=== PATIENT | female | born 1995 | race Caucasian/White ===

== ENCOUNTER → 2017-10-30 | Outpatient (CLI) | payer MEDICARE, MEDICAID ==
[~2017-10-30] MED LIST: "\\\"ANTIBIOTIC\\\""; ABILIFY 2 MG2 M1 PO; ALLEGRA180 MG; BENTYL10 MG PO; BIRTH CONTROL; BUTALB-APAP-CA1 EACH PO; CAMBIA50 MG PO; CIPROFLOXACIN500 M1 PO; CITRATE OF MAG296 ML PO; CONCERTA; CONCERTA54 MG PO; CORTAID28 GM TP; FLEXERIL PO; FLOMAX0.4 MG PO; IMITREX 25 MG T25 M1 PO; MACROBID 100 M100 M1 PO; MEDROLDOSEPACK PO; NAPROSYN375 MG PO; NAPROSYN500 MG PO; NORTRIPTYLINE H10 M1 PO; PERCOCET 5-3251 EACH PO; PRISTIQ50 M1 PO; PROPRANOLOL 8080 MG PO; SINGULAIR; SINGULAIR 10 MG10 M1; ULTRAM 50MG TAB50 MG PO; VICODIN; ZOFRAN4 MG PO; ZPAK PO
--- NOTE | 2017-10-31 08:24 | PAINCON ---
[address] [address] PAIN MANAGEMENT CONSULTATION Name: CRYSTAL LIU Room: [facility] Mani#: [id number] Admission: 10/30/17 Attend Phys: Thad Anaya Discharge: Date of : 89 Report #: [id number] THIS REPORT FOR: //name// CC: Jeffrey Quiles DATE OF SERVICE: 10/30/2017 HISTORY OF PRESENT ILLNESS: The patient is a pleasant 22-year-old female seen in consultation at the request of Dr. Russ for assistance with chronic headaches. The patient states she has had headaches for "many years." For the past 2 years without antecedent trauma and overuse, symptoms have been getting worse. She has been having greater than 15 headaches a month. Aches are primarily frontal with radiation to the retroorbital, bitemporal to the base of the skull. She has some subjective nausea and vomiting. Has subjective blurry vision, but no specific visual or aural prodrome type symptoms. She has tried conservative measures including ibuprofen, Aleve, Tylenol for headache treatment. Recently prescribed muscle relaxant, tizanidine as noted in the chart. Presently, she is using cyclobenzaprine. She states it makes her significantly sedated. She can only use it occasionally at bedtime. She describes pain that is fairly continuous, aching, sharp and stabbing. Rates her headaches anywhere from 8-9 on a visual analog scale. REVIEW OF SYSTEMS: Complete review of systems attached to chart and was gone over with the patient. She is single. She is in college. She is seen in the company of her grandmother who is supportive. 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 She lives at home and helps care for her 14-year-old special needs sister. She does not use alcohol or tobacco products. History of some asthma for which she uses Proventil p.r.n. She has a chronic anxiety and has been on Pristiq for some time. ADHD for which she takes Concerta. Remaining review of systems is noncontributory. Pain impact score is 34/70. PHYSICAL EXAMINATION: GENERAL: This is a 5 feet 4 inches, 163 pounds female. VITAL SIGNS: Blood pressure 126/86, pulse is 92, respirations are 16. NEUROLOGIC: Cranial nerves 2-12 are grossly intact. She is alert and oriented to person, place and time, judged to be a reasonable historian. HEENT: Some tenderness of the frontal sinuses, though not significant. Pupils are equal and reactive to light and accommodation. Extraocular muscles are intact. There is no nystagmus. Lateral gaze deviation. NECK: There is no cervical adenopathy appreciable. Cervical range of motion is good in flexion and extension. She is tender over the cervical facets, though [facility] [address] [place] [address] PAIN MANAGEMENT CONSULTATION Name: CRYSTAL LIU Room: [facility]#: [id number] Admission: 10/30/17 Attend Phys: Thad Anaya Discharge: Date of : [birth year] Report #: [id number] no discrete trigger points are noted. Thyroid is unremarkable. EXTREMITIES: Upper extremity strength is preserved. Deep tendon reflexes are symmetric. CARDIOVASCULAR: There are no carotid bruits auscultated. Heart is regular rate and rhythm without murmur. LUNGS: Clear to auscultation. ABDOMEN: Benign. MUSCULOSKELETAL: Gait is tandem. Skin wesley intact. IMAGING: The patient tells me she has had a cerebral MRI, I can see from Dr. Russ's office note dated 09/19/2017. That MRI of the brain and cervical spine was ordered. Unfortunately, I do not have those results. I can look up and note that at [facility], sinus x-rays on 07/27/2016 showed no consolidation of the frontal or maxillary sinuses. ASSESSMENT: Chronic daily headaches greater than 15 per month for greater than 2 years. The patient has been on abortive type [id number] agents and has not had any significant prophylactic agents tried. RECOMMENDATION: We will start the patient on nortriptyline 10 mg at bedtime for 30 days. We will try Imitrex 25 mg, dispensed 12 tablets, 1 tablet onset of acute headache, may repeat in 2 hours, max 2 headaches in 24 hours. Follow up in 30 days for reevaluation. If she is not doing better with the nortriptyline, we will try rotating to a beta-gopal, likely propranolol 80 mg b.i.d. for 30 days. If she fails prophylactic and abortive agents, she would likely be an excellent candidate for Botox injections. I will endeavor to obtain copies of the cervical and cranial MRI before next visit. Thanks for allowing me to participate in the patient's care. I will keep you abreast of her progress. <ELECTRONICALLY SIGNED> By: Camilo Quiles DO 10/31/17 0824 1426 [id number] Quiles DO /nt
== END ==
LOC: M.PC 01:27
DX: R51 Headache (principal)

== ENCOUNTER → 2017-12-11 | Outpatient (CLI) | payer MEDICARE, MEDICAID ==
--- NOTE | 2017-12-18 07:59 | PAINCON ---
[facility] [address] [place] [address] PAIN MANAGEMENT CONSULTATION Name: CRYSTAL LIU Room: [facility]#: [id number] Admission: 12/11/17 Attend Phys: Thad Anaya Discharge: Date of : [birth year] Report #: [id number] THIS REPORT FOR: //name// CC: Jeffrey Quiles HISTORY OF PRESENT ILLNESS: The patient is a very pleasant 22-year-old female seen in consultation on 10/30/2017 for chronic headaches. The patient was started on nortriptyline 10 mg at bedtime. We tried Imitrex for a headache aborting capability. He returns to pain clinic today noting that the headaches seem to be less frequent and intense though the Imitrex did not afford much relief. She notes her pain is primarily frontal. She rates this 6-7 on VAS. PHYSICAL EXAMINATION: VITAL SIGNS: Shows 5 feet 5 inches, 186 pound female and BMI is 31 kilograms per meter squared. Blood pressure is 115/74, pulse 91 and respirations 16. NEUROLOGICAL: Cranial nerves 2 through 12 are grossly intact. HEENT AND NECK: Pupils equal, react to light and accommodation. Extraocular muscles are intact. Gaze, there is no nystagmus. Cervical range of motion is adequate. There is no frontal sinus tenderness and no maxillary sinus tenderness. No cervical adenopathy. MUSCULOSKELETAL: Upper extremity strength is preserved. ASSESSMENT: Chronic headaches, requiring complex medication management. RECOMMENDATION: 1. The patient is doing well with nortriptyline at low dose 10 mg, will increase to 20 mg at bedtime. If this affords any untoward sedation and/or xerostomia, we will drop back to 10 mg. 2. We will try Fioricet for breakthrough headache, may take onset of headache, repeat in 2 hours max of 2 tablets in 24 hours. We will have the patient follow up in 2 months to evaluate efficacy of medication. Again, consideration for propranolol and/or Botox injections if headaches continue greater than 15/30 days. Discharged in stable condition. <ELECTRONICALLY SIGNED> By: Camilo Quiles DO 12/18/17 0759 1415 [id number] Quiles DO /nt
== END ==
LOC: M.PC 11-27 01:45
DX: R51 Headache (principal); Z79.899 Other long term (current) drug therapy

== ENCOUNTER → 2018-02-12 | Outpatient (CLI) | payer MEDICARE, MEDICAID ==
--- NOTE | 2018-02-17 06:53 | PAINCON ---
[address] [address] PAIN MANAGEMENT CONSULTATION Name: CRYSTAL LIU Room: [facility]#: [id number] Admission: 02/12/18 Attend Phys: Thad Anaya Discharge: Date of : 89 Report #: [id number] THIS REPORT FOR: //name// CC: Jeffrey Quiles DATE OF SERVICE: 02/12/2018 HISTORY OF PRESENT ILLNESS: The patient is a pleasant 22-year-old female being treated for chronic migraine headaches. The patient was initially seen in consultation on 10/30/2017. We have trialed Imitrex, which the patient failed. She is using nortriptyline, increased from 10 to 20 mg at bedtime with some efficacy. She still, however, has headaches greater than 15 out of 30 days. I trialled Fioricet at last visit, it does help abort the headaches when they occur; however, she feels that 1 tablet does not help and 2 tablets cause her to feel cognitively impaired with some lightheadedness. Returns to the pain clinic today noting headache are sometimes frontal, sometimes in the back of the head. She is taking finals in school now; with stress, headaches are a little more frequent. PHYSICAL EXAMINATION: GENERAL: Otherwise unchanged, 5 feet 5 inches tall, 185 pound female, BMI is 30.9 kilograms per meter squared. VITAL SIGNS: Blood pressure 145/85, pulse 106, respirations 16. NEUROLOGIC: Cranial nerves 2-12 are grossly intact. HEENT: Pupils equal and reactive to light and accommodation. Extraocular muscles are intact. NECK: Cervical range of motion is full. There is no cervical adenopathy noted. ASSESSMENT: Chronic headaches, migraine component, greater than 15 out of 30 days, having failed nortriptyline as a prophylactic agent, having failed Imitrex and Fioricet as the abortants. We will add metoprolol 80 mg b.i.d. Continue Fioricet, will enable her to take 1 tablet initially followed by 1/2 tablet in 1 hour. Hopefully, this will help ameliorate significant headaches. Continue nortriptyline 20 mg at bedtime. It may be affording some relief. Follow up in 4 weeks for reevaluation. If symptoms continue, we will refer her for Botox injections, having met all diagnostic criteria including failing 2 categories of abortant agents and having failed 2 [place] [address] PAIN MANAGEMENT CONSULTATION Name: CRYSTAL LIU Jacques Room: [facility]#: [id number] Admission: 02/12/18 Attend Phys: Thad Anaya Discharge: Date of : 89 Report #: [id number] Discharged in good and stable condition after approximately 20 minutes spent counseling the patient. <ELECTRONICALLY SIGNED> By: Camilo Quiles DO 02/17/18 0653 1404 [id number] Quiles DO /olivia
== END ==
LOC: M.PC 02-05 09:30
DX: G43.909 Migraine, unspecified, not intractable, without status migrainosus (principal)

== ENCOUNTER → 2018-03-12 | Outpatient (CLI) | payer MEDICARE, MEDICAID ==
--- NOTE | 2018-03-13 07:09 | PAINCON ---
[facility] [address] [place] [address] PAIN MANAGEMENT CONSULTATION Name: CRYSTAL LIU Room: [facility] Mani#: [id number] Admission: 03/12/18 Attend Phys: Thad Anaya Discharge: Date of : 89 Report #: [id number] THIS REPORT FOR: //name// CC: Jeffrey Quiles The patient is a pleasant 22-year-old female being treated for chronic headaches, migraine headaches, recalcitrant to conservative therapy. Last visit, we started the patient on propranolol as a prophylactic agent. She currently is taking nortriptyline as well. She notes improvement in frequency of headaches; however, still has headaches greater than 20 out of 30 days. Headaches seem to be retroorbital, radiating in the posterior occiput. They are strongly associated with photophobia. We tried Fioricet as an abortant agent with nominal efficacy and unfortunately associated with some nausea. She did feel that the propranolol starting at bedtime has helped, but when she tried to take it b.i.d., it made her feel "lightheaded." She is getting better taking it simply at bedtime. Rates her pain anywhere from 2-6 on a VAS. The patient has failed ibuprofen, Aleve and Tylenol as well as muscle relaxants for her headaches. She does take Pristiq for some anxiety, methylphenidate for adult attention deficit disorder. Proventil for asthma. Remaining review of systems is noncontributory. Physical exam relatively unchanged from prior visit, pleasant 22-year-old female. Blood pressure is 130/74, pulse 88, respirations 16. BMI is 31.1 kilograms per meter squared. She does not use tobacco products. Cranial nerves 2-12 are grossly intact, though she does have some photophobia. Extraocular muscles are intact. Cervical range of motion is limited, tender in the splenius capitis, trapezius. No discrete trigger points noted. Upper extremity strength is preserved. No appreciable cervical adenopathy. Reviewed diagnostic findings including MRI, cranial vault from 10/03/2017. No acute infarct, hemorrhage or abnormal masses. ASSESSMENT: Symptomatic chronic migraine headaches, having failed conservative therapy including 2 classes of abortant agents and 2 classes of prophylactic agents. RECOMMENDATIONS: We will trial Cambia 1 onset of headache, may repeat in 24 hours. We will continue propranolol and nortriptyline at bedtime. We will refer for consideration for Botox injections, [place] [address] PAIN MANAGEMENT CONSULTATION Name: LIUCRYSTAL THOMAS Jacques Room: [facility]#: [id number] Admission: 03/12/18 Attend Phys: Thad Anaya Discharge: Date of : 89 Report #: [id number] information for Dr. Amira Reyes, Dr. Noa Hudson and/or Dr. Genaro Jauregui. Discharged in good and stable condition. Follow up simply as needed. <ELECTRONICALLY SIGNED> By: Camilo Quiles DO 03/13/18 0709 1051 [id number] Center[facility]eta Quiles DO /nt
== END ==
LOC: M.PC 03:47
DX: G43.909 Migraine, unspecified, not intractable, without status migrainosus (principal)

== ENCOUNTER → 2019-04-27 | Outpatient (CLI) | payer MEDICARE, MEDICAID ==
[~2019-04-27] MED LIST changes: +LAMICTAL5 MG PO; +RIZATRIPTAN5 MG PO; +ZOFRAN ODT4 MG SUBLING; +ZYRTEC10 M5 PO
== END ==
LOC: M.ULTRA 15:29
DX: N20.0 Calculus of kidney (principal)

== ENCOUNTER → 2021-01-25 | Outpatient (CLI) | payer MEDICARE, MEDICAID | LOC: M.CT 13:27 | PROVIDERS: ATTEND Registered Nurse Diabetes Educator | DX: R10.84 Generalized abdominal pain (principal); R11.2 Nausea with vomiting, unspecified; R10.13 Epigastric pain ==

== ENCOUNTER 2021-08-20 22:17 | Emergency (ER) | payer MEDICARE, MEDICAID ==
[~2021-08-20] VITALS: Ht 162.6 cm; Wt 70.3 kg
[2021-08-20 23:10] LABS: ABSOLUTE BASOPHILS 0.1 thou/uL (0.0-0.2); ABSOLUTE EOSINOPHILS 0.3 thou/uL (0.0-0.7); ABSOLUTE LYMPHOCYTES 2.4 thou/uL (0.8-5.3); ABSOLUTE MONOCYTES 1.1 thou/uL (0.0-1.2); ABSOLUTE NEUTROPHILS 8.2 thou/uL (1.6-8.1); BASOPHILS 0.6 %; EOSINOPHILS 2.3 %; HEMATOCRIT 36.6 % (37.0-47.0); HEMOGLOBIN 12.3 gm/dL (12.0-15.0); LYMPHOCYTES 19.8 %; MCH 29.9 pg (26.0-34.0); MCHC 33.6 g/dL (28.0-37.0); MCV 88.8 fL (80.0-100.0); MONOCYTES 8.8 %; MPV 8.9 fl. (7.2-11.1); NUCLEATED RBCS 0 /100WBC; PLATELET COUNT* 238 thou/uL (150-400); POLYS 68.5 %; RBC 4.12 mil/uL (4.20-5.00); RDW-CV 13.7 % (10.5-14.5)
[2021-08-20 23:14] LABS: URINE BILIRUBIN NEGATIVE (Negative); URINE BLOOD NEGATIVE (Negative); URINE CLARITY CLOUDY; URINE COLOR YELLOW; URINE GLUCOSE-RANDOM NEGATIVE (Negative); URINE KETONES NEGATIVE (Negative); URINE LEUKOCYTES-REFLEX 1+ (Negative); URINE NITRITE-REFLEX NEGATIVE (Negative); URINE PROTEIN 1+ (Negative); URINE SPECIFIC GRAVITY >= 1.030 (1.005-1.030); URINE UROBILINOGEN 0.2 E.U./dl (0.2-1.0)
[2021-08-20 23:15] LABS: CALCIUM 8.6 mg/dL (8.5-10.1); CREATININE 0.9 mg/dL (0.6-1.3); POTASSIUM 3.7 mmol/L (3.5-5.1)
[2021-08-20 23:19] LABS: ALBUMIN 3.7 g/dL (3.4-5.0); TOTAL BILIRUBIN 0.3 mg/dL (<0.1-1.0)
[2021-08-20 23:21] LABS: BACTERIA-REFLEX >30 Many /HPF (None Seen); CASTS None Seen /LPF (None Seen); CRYSTALS None Seen /LPF (None Seen); MUCUS 4-6 Moderate strn/LPF (None Seen); SQUAMOUS 4-10 Moderate /LPF (0-3); TRANSITIONAL EPITHEL CELL 0-3 Few /LPF (None Seen); URINE RBC 3-10 Few /HPF (0-2); URINE WBC-REFLEX >25 Many /HPF (0-5); WBC CLUMPS Moderate (None Seen)
[2021-08-20 23:22] LABS: AMP/METHAMP Negative (Negative); BARBITURATES Negative (Negative); BENZODIAZEPINES Negative (Negative); COCAINE Negative (Negative); METHADONE Negative (Negative); OPIATES Negative (Negative); PCP Negative (Negative); THC POSITIVE (Negative)
[2021-08-21] MEDS ORDERED: NORFLEX100 MG PO (00:45)
[2021-08-21] MEDS ORDERED: MELOXICAM15 MG PO (00:45)
[2021-08-21 01:01] VITALS: BP 113/68
--- NOTE | 2021-08-22 08:44 | EKG ---
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1995 Requested By: Noemi Ramon Order Number: [id number] MD: Francis Mishra Measurements Intervals [place] Rate: 73 P: -24 CT: 135 QRS: 26 QRSD: 119 T: 3 QT: 376 QTc: 415 Interpretive Statements Sinus rhythm Incomplete right bundle branch block Compared to ECG 08/04/2013 10:00:05 Sinus arrhythmia no longer present T-wave abnormality no longer present Possible ischemia no longer present Electronically Signed On 08-22-2021 8:44:23 EQUIPMENT PLANNER by Francis Mishra [email or web address] <ELECTRONICALLY SIGNED> By: Francis Mishra MD, FACC 08/22/21 0844 2249 48 Francis Mishra MD, FAC /EPI
== END 2021-08-21 01:01 | disposition home or self-care (01) ==
LOC: M.ERS 22:17
PROVIDERS: Personal Emergency Response Attendant
DX: S06.0X9A Concussion with loss of consciousness of unspecified duration, initial encounter (principal); S13.9XXA Sprain of joints and ligaments of unspecified parts of neck, initial encounter; J45.909 Unspecified asthma, uncomplicated; F41.9 Anxiety disorder, unspecified; F90.9 Attention-deficit hyperactivity disorder, unspecified type; Z90.89 Acquired absence of other organs; Z79.899 Other long term (current) drug therapy; Z88.0 Allergy status to penicillin; V89.2XXA Person injured in unspecified motor-vehicle accident, traffic, initial encounter; Y93.89 Activity, other specified; Y92.89 Other specified places as the place of occurrence of the external cause; Y99.8 Other external cause status